=== PATIENT | female | born 1930 | race African-American/Black ===

== ENCOUNTER 2018-01-15 12:20 | Emergency (ER) | payer MEDICARE, OTHER ==
[~2018-01-15] VITALS: Ht 152.4 cm; Wt 52.2 kg
--- NOTE | 2018-01-15 13:16 | PHYS DOC ---
Past Medical History Past Medical History: Anemia, Anxiety, Dementia, High Cholesterol Past Surgical History: Hysterectomy Alcohol Use: None Drug Use: None Adult General Chief Complaint Chief Complaint: ALTERED MENTAL STATUS HPI HPI Patient is a 87 year old female with a history of dementia presents to the ED from the [facility] complaining of altered mental status since this morning. Patient is nonverbal. Staff states patient has been acting differently and has a different expression on her face since after breakfast. States that she ate all of her breakfast. Patient is unable to provide any history. Review of Systems Review of Systems UNABLE TO ASSESS DUE TO NONVERBAL Constitutional: Denies fever or chills [] Eyes: Denies change in visual acuity, redness, or eye pain [] HENT: Denies nasal congestion or sore throat [] Respiratory: Denies cough or shortness of breath [] Cardiovascular: No additional information not addressed in HPI [] GI: Denies abdominal pain, nausea, vomiting, bloody stools or diarrhea [] : Denies dysuria or hematuria [] Musculoskeletal: Denies back pain or joint pain [] Integument: Denies rash or skin lesions [] Neurologic: Denies headache, focal weakness or sensory changes [] All other systems were reviewed and found to be within normal limits, except as documented in this note. Allergies Allergies Allergies Coded Allergies Type Severity Reaction Last Updated Verified No Known Drug Allergies 12/06/13 No Physical Exam Physical Exam Constitutional: no acute distress, non-toxic appearance. [] HENT: Normocephalic, atraumatic Eyes: PERRLA, EOMI, conjunctiva normal, no discharge. [] Neck: Normal range of motion, no tenderness, supple, no stridor. [] Cardiovascular:Heart rate regular rhythm, no murmur [] Lungs & Thorax: Bilateral breath sounds clear to auscultation [] Abdomen: Bowel sounds normal, soft, no tenderness, no masses, no pulsatile masses. [] Skin: Warm, dry, no erythema, no rash. [] Back: No tenderness, no CVA tenderness. [] Extremities: Patient upper extremities are contracted. No tenderness, no cyanosis, no clubbing, no edema. [] Neurologic: Baseline mentation. no focal deficits noted. no facial droop. cranial nerves II-XII grossly intact. normal sensory exam. unable to test motor or cerebellar functioning. Psychologic: Affect normal, mood normal. [] Current Patient Data Vital Signs Vital Signs Date Time Temp Pulse Resp B/P (MAP) Pulse Ox O2 Delivery O2 Flow Rate FiO2 01/15/18 13:59 74 01/15/18 12:59 21 95 01/15/18 12:20 97.5 131/60 (83) Room Air 97.5 Lab Values Laboratory Tests Test 01/15/18 13:17 01/15/18 13:23 01/15/18 16:10 Urine Collection Type U cath Urine Color Yellow Urine Clarity Clear Urine pH 6.0 Urine Specific [place] 1.020 Urine Protein Negative mg/dL (NEG-TRACE) Urine Glucose (UA) Negative mg/dL (NEG) Urine Ketones (Stick) Negative mg/dL (NEG) Urine Blood Negative (NEG) Urine Nitrite Negative (NEG) Urine Bilirubin Negative (NEG) Urine Urobilinogen Dipstick 0.2 mg/dL (0.2 mg/dL) Urine Leukocyte Esterase Trace (NEG) Urine RBC Rare /HPF (0-2) Urine WBC 1-4 /HPF (0-4) Urine Squamous Epithelial Cells Mod /LPF Urine Transitional Epithelial Cells Occ /LPF Urine Bacteria 0 /HPF (0-FEW) Urine Hyaline Casts Many /HPF Urine Mucus Marked /LPF Sodium Level 142 mmol/L (136-145) Potassium Level 4.2 mmol/L (3.5-5.1) Chloride Level 104 mmol/L (98-107) Carbon Dioxide Level 29 mmol/L (21-32) Anion Gap 9 (6-14) Blood Urea Nitrogen 19 mg/dL (7-20) Creatinine 1.1 mg/dL (0.6-1.0) H Estimated GFR (Cockcroft-Gault) 57.0 BUN/Creatinine Ratio 17 (6-20) Glucose Level 124 mg/dL (70-99) H Calcium Level 9.6 mg/dL (8.5-10.1) Total Bilirubin 0.4 mg/dL (0.2-1.0) Aspartate Amino Transferase (AST) 27 U/L (15-37) Alanine Aminotransferase (ALT) 21 U/L (14-59) Alkaline Phosphatase 47 U/L (46-116) Troponin I Quantitative < 0.017 ng/mL (0.000-0.055) Total Protein 7.7 g/dL (6.4-8.2) Albumin 3.3 g/dL (3.4-5.0) L Albumin/Globulin Ratio 0.8 (1.0-1.7) L White Blood Count 10.3 x10^3/uL (4.0-11.0) Red Blood Count 3.87 x10^6/uL (3.50-5.40) Hemoglobin 11.5 g/dL (12.0-15.5) L Hematocrit 34.4 % (36.0-47.0) L Mean Corpuscular Volume 89 fL (79-100) Mean Corpuscular Hemoglobin 30 pg (25-35) Mean Corpuscular Hemoglobin Concent 34 g/dL (31-37) Red Cell Distribution Width 14.2 % (11.5-14.5) Platelet Count 209 x10^3/uL (140-400) Neutrophils (%) (Auto) 77 % (31-73) H Lymphocytes (%) (Auto) 17 % (24-48) L Monocytes (%) (Auto) 5 % (0-9) Eosinophils (%) (Auto) 0 % (0-3) Basophils (%) (Auto) 0 % (0-3) Neutrophils # (Auto) 8.0 x10^3uL (1.8-7.7) H Lymphocytes # (Auto) 1.8 x10^3/uL (1.0-4.8) Monocytes # (Auto) 0.5 x10^3/uL (0.0-1.1) Eosinophils # (Auto) 0.0 x10^3/uL (0.0-0.7) Basophils # (Auto) 0.0 x10^3/uL (0.0-0.2) Laboratory Tests 01/15/18 16:10 Laboratory Tests 01/15/18 13:23 EKG EKG [] Radiology/Procedures Radiology/Procedures []PROCEDURE: CT HEAD WO CONTRAST Portable chest, 01/15/2018: HISTORY: Altered mental status Comparison is made to a study from 12/06/2013. The heart size and pulmonary vascularity are normal. There is tortuosity and atherosclerotic calcification of the thoracic aorta. No pulmonary infiltrate is seen. There is no evidence of pleural fluid. The bony structures are demineralized. IMPRESSION: No acute cardiopulmonary abnormality is detected. CT of the head without contrast, 01/15/2018: HISTORY: Altered mental status There is severe cerebral atrophy. Dilatation of the lateral and third ventricles is probably on a compensatory basis secondary to the atrophy. There is no shift of the midline structures. There is no evidence of acute intracranial hemorrhage or mass effect. IMPRESSION: 1. Severe cerebral atrophy. 2. No acute intracranial abnormality is detected. Course & Med Decision Making Course & Med Decision Making Pertinent Labs and Imaging studies reviewed. (See chart for details) Discussed case with patients PCP partner, Dr. Arnold. Agrees that if patient is at baseline and she has spent 4+ hours with no change from her normal that she can go home and he will pass a message to her PCP, Dr. Aj, regarding her visit and he will follow- up with her tomorrow. []Discussed lab and imaging findings with family and staff member from group home at bedside. States patient had felt clammy but since seeing her in the ED, she has been acting per her normal. No facial droop or focal neuro deficits. Labs WNL. Staff member states she has been in contact with her Doctor and will set an appointment for her. States they feel comfortable taking her home. Discussed reasons to return to the ED and they verbalize understanding of instructions and follow-up. Dragon Disclaimer Dragon Disclaimer This electronic medical record was generated, in whole or in part, using a voice recognition dictation system. Departure Departure Impression: Primary Impression: Dementia Disposition: 01 HOME, SELF-CARE Condition: IMPROVED Referrals: BRANDY AJ MD (PCP) Patient Instructions: Dementia CRISTIN BLAND Jan 15, 2018 13:16
[2018-01-15 13:48] LABS: BILIRUBIN,URINE NEGATIVE (NEG); CLARITY,URINE CLEAR; COLOR,URINE YELLOW; NITRITE,URINE NEGATIVE (NEG); PROTEIN,URINE NEGATIVE (NEG-TRACE); UROBILINOGEN,URINE 0.2 mg/dL (0.2 mg/dL)
[2018-01-15 14:00] LABS: CALCIUM 9.6 mg/dL (8.5-10.1); CREATININE 1.1 mg/dL (0.6-1.0); POTASSIUM 4.2 mmol/L (3.5-5.1)
[2018-01-15 14:04] LABS: BACTERIA,URINE 0 /HPF (0-FEW); HYALINE CASTS, URINE MANY /HPF; RBC,URINE RARE /HPF (0-2); SQUAMOUS EPITHELIAL CELL,UR MOD /LPF
--- NOTE | 2018-01-15 14:05 | RAD ---
Portable chest, 01/15/2018: HISTORY: Altered mental status Comparison is made to a study from 12/06/2013. The heart size and pulmonary vascularity are normal. There is tortuosity and atherosclerotic calcification of the thoracic aorta. No pulmonary infiltrate is seen. There is no evidence of pleural fluid. The bony structures are demineralized. IMPRESSION: No acute cardiopulmonary abnormality is detected. CT of the head without contrast, 01/15/2018: HISTORY: Altered mental status There is severe cerebral atrophy. Dilatation of the lateral and third ventricles is probably on a compensatory basis secondary to the atrophy. There is no shift of the midline structures. There is no evidence of acute intracranial hemorrhage or mass effect. IMPRESSION: 1. Severe cerebral atrophy. 2. No acute intracranial abnormality is detected. Electronically signed by: Ron Gutierrez MD (01/15/2018 2:02 PM) [facility]
[2018-01-15 14:06] LABS: ALBUMIN 3.3 g/dL (3.4-5.0); ALBUMIN/GLOBULIN RATIO 0.8 (1.0-1.7); TOTAL BILIRUBIN 0.4 mg/dL (0.2-1.0); TOTAL PROTEIN 7.7 g/dL (6.4-8.2)
[2018-01-15 16:20] LABS: BASO % 0 % (0-3); EOS % 0 % (0-3); HEMATOCRIT 34.4 % (36.0-47.0); HEMOGLOBIN 11.5 g/dL (12.0-15.5); LYMPH # 1.8 x10^3/uL (1.0-4.8); LYMPH % 17 % (24-48); MEAN CORPUSCULAR HEMOGLOBIN 30 pg (25-35); MEAN CORPUSCULAR HGB CONC 34 g/dL (31-37); MEAN CORPUSCULAR VOLUME 89 fL (79-100); MONO # 0.5 x10^3/uL (0.0-1.1); MONO % 5 % (0-9); NEUT % 77 % (31-73); PLATELET COUNT 209 x10^3/uL (140-400); RED BLOOD COUNT 3.87 x10^6/uL (3.50-5.40); RED CELL DISTRIBUTION WIDTH 14.2 % (11.5-14.5); WHITE BLOOD COUNT 10.3 x10^3/uL (4.0-11.0)
[2018-01-15 18:16] VITALS: BP 98/56
== END 2018-01-15 18:54 | disposition home or self-care (01) ==
LOC: ER 12:20
DX: F03.90 Unspecified dementia, unspecified severity, without behavioral disturbance, psychotic disturbance, mood disturbance, and anxiety (principal); E78.00 Pure hypercholesterolemia, unspecified; F41.9 Anxiety disorder, unspecified; Z90.710 Acquired absence of both cervix and uterus
CPT/HCPCS: 36415; 70450; 71045; 80053; 81001; 84484; 85025; 99285-25

== ENCOUNTER 2018-12-13 09:46 | Emergency (ER) | payer OTHER ==
[~2018-12-13] VITALS: Ht 152.4 cm; Wt 52.2 kg
--- NOTE | 2018-12-13 10:44 | RAD ---
PORTABLE CHEST 1V History: Trauma. Pain. Comparison: January 15, 2018. Findings: Rotated radiograph. No focal consolidation or pleural effusion. Normal heart size. No pneumothorax. No displaced rib fractures. 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 Impression: 1. No acute cardiopulmonary process. Electronically signed by: Aamir Vasquez DO (12/13/2018 10:41 AM) [id number]
--- NOTE | 2018-12-13 11:07 | RAD ---
HIP LEFT 2V WITH PELVIS History: History of trauma. Left hip pain. Technique: AP view the pelvis and 2 additional views of the left hip. Comparison: December 23, 2013 Findings: Internal fixation left proximal femur with intramedullary xu and interlocking screws. No acute fracture. Normal alignment of the hip. Multilevel lumbar spondylosis. Bilateral SI DJD. Vascular calcifications. Impression: 1. No acute osseous abnormality. 2. Internal fixation left proximal femur. Electronically signed by: Aamir Vasquez DO (12/13/2018 11:04 AM) [email or web address]
--- NOTE | 2018-12-13 11:20 | RAD ---
CT HEAD AND CERVICAL SPINE WO History: History of trauma. Pain. Comparison: January 15, 2018 Technique: Noncontrast CT imaging was performed of the head and cervical spine. Coronal and sagittal reconstructions were performed. Exposure: One or more of the following individualized dose reduction techniques were utilized for this examination: 1. Automated exposure control 2. Adjustment of the mA and/or kV according to patient size 3. Use of iterative reconstruction technique. Findings: Head CT: No intracranial hemorrhage. No mass effect. Brain parenchymal volume loss. Dilated lateral ventricles, unchanged. Imaged orbits are unremarkable. Imaged paranasal sinuses and mastoid air cells are clear. Bilateral TMJ arthropathy. Cervical spine CT: Examination is degraded due to patient positioning. Normal vertebral body height and alignment. No fracture. Multilevel degenerative changes of the cervical spine most prominent C3-C4, C4-C5 and C5-C6. Multilevel facet arthropathy. Soft tissues unremarkable. Impression: 1. No acute intracranial abnormality. 2. Brain parenchymal volume loss with dilated lateral ventricles, unchanged. 3. No acute fracture or subluxation of the cervical spine allowing for degradation due to patient positioning. 4. Multilevel cervical spondylosis. Electronically signed by: Aamir Vasquez DO (12/13/2018 11:17 AM) [email or web address]
--- NOTE | 2018-12-13 11:28 | PHYS DOC ---
Past Medical History Past Medical History: Anemia, Anxiety, Dementia, High Cholesterol Past Surgical History: Hysterectomy Alcohol Use: None Drug Use: None Adult General Chief Complaint Chief Complaint: MECHANICAL FALL HPI HPI Patient is a 88 year old female with history of advanced dementia and resident of dementia units of group home who presents via EMS because of a fall. group home staff reported that patient complaining of left hip pain but accor ding to EMS patient was able to move her left hip without problem. Patient is nonverbal and unable to give history. Review of Systems Review of Systems Unable to obtain because of advanced dementia Allergies Allergies Allergies Coded Allergies Type Severity Reaction Last Updated Verified No Known Drug Allergies 12/06/13 No Physical Exam Physical Exam Constitutional: Mild distress, non-toxic appearance. [] HENT: Normocephalic, atraumatic. Eyes: PERRLA, EOMI, conjunctiva normal, no discharge. [] Neck: Normal range of motion, no tenderness, supple, no stridor. [] Cardiovascular:Heart rate regular rhythm, no murmur [] Lungs & Thorax: Bilateral breath sounds clear to auscultation [] Abdomen: Bowel sounds normal, soft, no tenderness, no masses, no pulsatile masses. [] Skin: Warm, dry, no erythema, no rash. [] Back: No tenderness, no CVA tenderness. [] Extremities: No tenderness, no cyanosis, no clubbing, ROM intact, no edema. [] Neurologic: Alert , no focal deficits noted. [] Psychologic: Unable to evaluate Current Patient Data Vital Signs Vital Signs Date Time Temp Pulse Resp B/P (MAP) Pulse Ox O2 Delivery O2 Flow Rate FiO2 12/13/18 12:45 94 21 98 12/13/18 09:50 97.6 193/6 (68) Room Air 97.6 EKG EKG [] Radiology/Procedures Radiology/Procedures [][facility] [address] [place], [place] [id number] IMAGING REPORT Signed PATIENT: LUDY BELTRAN ACCOUNT: [id number] : 1930 LOCATION: ER AGE: 88 SEX: F EXAM STATUS: REG ER ORD. PHYSICIAN: VILLA PATEL MD REASON: fall PROCEDURE: PORTABLE CHEST 1V PORTABLE CHEST 1V History: Trauma. Pain. Comparison: January 15, 2018. Findings: Rotated radiograph. No focal consolidation or pleural effusion. Normal heart size. No pneumothorax. No displaced rib fractures. 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 Impression: 1. No acute cardiopulmonary process. Electronically signed by: Aamir Vasquez DO (12/13/2018 10:41 AM) [email or web address] DICTATED and SIGNED BY: AAMIR VASQUEZ DO DATE: 12/13/18 1041 [facility] [address] [place] [address] IMAGING REPORT Signed PATIENT: LUDY BELTRAN ACCOUNT: [id number] : 1930 LOCATION: ER AGE: 88 SEX: F EXAM STATUS: REG ER ORD. PHYSICIAN: VILLA PATEL MD REASON: fall PROCEDURE: CT HEAD AND CERVICAL SPINE WO CT HEAD AND CERVICAL SPINE WO History: History of trauma. Pain. Comparison: January 15, 2018 Technique: Noncontrast CT imaging was performed of the head and cervical spine. Coronal and sagittal reconstructions were performed. Exposure: One or more of the following individualized dose reduction techniques were utilized for this examination: 1. Automated exposure control 2. Adjustment of the mA and/or kV according to patient size 3. Use of iterative reconstruction technique. Findings: Head CT: No intracranial hemorrhage. No mass effect. Brain parenchymal volume loss. Dilated lateral ventricles, unchanged. Imaged orbits are unremarkable. Imaged paranasal sinuses and mastoid air cells are clear. Bilateral TMJ arthropathy. Cervical spine CT: Examination is degraded due to patient positioning. Normal vertebral body height and alignment. No fracture. Multilevel degenerative changes of the cervical spine most prominent C3-C4, C4-C5 and C5-C6. Multilevel facet arthropathy. Soft tissues unremarkable. Impression: 1. No acute intracranial abnormality. 2. Brain parenchymal volume loss with dilated lateral ventricles, unchanged. 3. No acute fracture or subluxation of the cervical spine allowing for degradation due to patient positioning. 4. Multilevel cervical spondylosis. Electronically signed by: Aamir Vasquez DO (12/13/2018 11:17 AM) [id number] DICTATED and SIGNED BY: AAMIR VASQUEZ DO DATE: 12/13/18 1117 [facility] [address] [place] [address] IMAGING REPORT Signed PATIENT: LUDY BELTRAN ACCOUNT: [id number] : 1930 LOCATION: ER AGE: 88 SEX: F EXAM STATUS: REG ER ORD. PHYSICIAN: VILLA PATEL MD REASON: fall, LT HIP PAIN, PT UNABLE TO STRAIGHTEN LEGS PROCEDURE: HIP LEFT 2V WITH PELVIS HIP LEFT 2V WITH PELVIS History: History of trauma. Left hip pain. Technique: AP view the pelvis and 2 additional views of the left hip. Comparison: December 23, 2013 Findings: Internal fixation left proximal femur with intramedullary xu and interlocking screws. No acute fracture. Normal alignment of the hip. Multilevel lumbar spondylosis. Bilateral SI DJD. Vascular calcifications. Impression: 1. No acute osseous abnormality. 2. Internal fixation left proximal femur. Electronically signed by: Aamir Vasquez DO (12/13/2018 11:04 AM) [email or web address] DICTATED and SIGNED BY: AAMIR VASQUEZ DO DATE: 12/13/18 1104 Course & Med Decision Making Course & Med Decision Making Pertinent Imaging studies reviewed. (See chart for details) Evaluation of patient in ER showed 88-year-old female patient with advanced use of a fall. Patient did not have fracture and CT of head was unremarkable and was transferred to group home again by ambulance. Dragon Disclaimer Dragon Disclaimer This electronic medical record was generated, in whole or in part, using a voice recognition dictation system. Departure Departure Impression: Primary Impression: Fall at group home Additional Impressions: Severe dementia Facial contusion Disposition: 01 HOME, SELF-CARE (discharge group home at 1127) Condition: IMPROVED Referrals: NASIM ALEXIS (PCP) Patient Instructions: Fall Prevention and Home Safety Additional Instructions: Continue home medication Follow-up with your primary care physician in 3-5 days Return to ER if not getting better Problem Qualifiers Primary Impression: Fall at group home Encounter type: initial encounter Qualified Codes: W19.XXXA - Unspecified fall, initial encounter; Y92.129 - Unspecified place in group home as the place of occurrence of the external cause Additional Impressions: Facial contusion Encounter type: subsequent encounter Qualified Codes: S00.83XD - Contusion of other part of head, subsequent encounter VILLA PATEL MD Dec 13, 2018 11:28
[2018-12-13 12:45] VITALS: BP 154/80
== END 2018-12-13 12:58 | disposition home or self-care (01) ==
LOC: ER 09:46
DX: S00.83XA Contusion of other part of head, initial encounter (principal); M25.552 Pain in left hip; R51 Headache; F03.90 Unspecified dementia, unspecified severity, without behavioral disturbance, psychotic disturbance, mood disturbance, and anxiety; E78.00 Pure hypercholesterolemia, unspecified; W18.39XA Other fall on same level, initial encounter; Y93.89 Activity, other specified; Y92.128 Other place in nursing home as the place of occurrence of the external cause; Y99.8 Other external cause status
CPT/HCPCS: 70450; 71045; 72125; 73502; 99284-25